=== PATIENT | male | born 1960 | race Caucasian/White ===

== ENCOUNTER → 2020-07-22 10:26 | Outpatient (BNVA) | payer OTHER, MEDICARE, SELFPAY | PROVIDERS: Referring Provider Family Medicine; Visit Provider Specialist | DX: M25.562 Pain in left knee (principal); M17.12 Unilateral primary osteoarthritis, left knee; M25.462 Effusion, left knee | CPT/HCPCS: 73560; 73565 ==

== ENCOUNTER → 2021-11-06 11:49 | Outpatient (BNVA) | payer OTHER, SELFPAY | PROVIDERS: Visit Provider Surgery | DX: Z12.11 Encounter for screening for malignant neoplasm of colon (principal) | CPT/HCPCS: 99203 ==

== ENCOUNTER 2022-01-21 07:06 | Day surgery (SDC) | payer OTHER, SELFPAY ==
[2022-01-19 13:31] VITALS: BMI 34.7
[2022-01-21 07:42] VITALS: BP 151/101; PULSE 79; RESP 18; TEMP 36.6; O2SAT 97
[2022-01-21] MEDS: sodium chloride 0.9% 1,000 ML 30 ML IV (07:46)
--- NOTE | 2022-01-21 08:05 | ANES.PREANE2 ---
Pre-Anesthetic Assessment Height/Weight: Height 1.57 m Weight 86.183 kg Temp Pulse Resp BP Pulse Ox O2 Del Method 97.8 F 79 18 151/101 97 01/21/22 07:42 01/21/22 07:42 01/21/22 07:42 01/21/22 07:42 01/21/22 07:42 01/21/22 07:42 Operation Date: 01/21/22 08:45 Proposed Procedures p Colonoscopy 76813,Z12.11(Not Applicable) - Jose Saxena DO Familial anesthetic complications: None Was Beta Jerry taken within 24 hours: N/A Was Clonidine taken within 24 hours: N/A Last intake: Intake Last Liquid Date 01/20/22 Last Liquid Time 22:00 Last Solid Date 01/19/22 Last Solid Time 20:00 Social No alcohol and No tobacco Exam alert, oriented x 3, clear to auscultation bilaterally and regular rate & rhythm Airway Mallampati: Class III Dentition: full Pulmonary Chronic Obstructive Pulmonary Disease CV/HEM Hypertension Metabolic Hyperlipidemia Anesthetic Plan ASA status: 3 Anesthesia: MAC Risk of > 500 ml blood loss (7ml/kg in children): No Medications/Allergies Home Medications Medication Instructions Recorded Confirmed Last Taken Type albuterol sulfate 90 mcg/actuation 1 inh inhalation QID PRN Shortness 07/22/20 01/19/22 01/19/22 History aerosol inhaler Of Breath atorvastatin 80 mg tablet 80 mg PO DAILY 07/22/20 01/19/22 01/19/22 History budesonide-formoterol HFA 80 2 puff inhalation BID PRN 07/22/20 01/19/22 01/19/22 History mcg-4.5 mcg/actuation aerosol Shortness Of Breath inhaler bupropion HCl 300 mg 24 hr tablet, 300 mg PO QAM 07/22/20 01/19/22 01/19/22 History extended release meloxicam 15 mg tablet 15 mg PO DAILY 07/22/20 01/19/22 01/19/22 History prazosin 1 mg capsule 1 mg PO BID 07/22/20 01/19/22 01/19/22 History sildenafil 100 mg tablet 100 mg PO DAILY PRN Sexual Activity 07/22/20 01/19/22 01/19/22 History topiramate 50 mg tablet 50 mg PO BID 07/22/20 01/19/22 01/19/22 History Allergies Allergy/AdvReac Type Severity Reaction Status Date / Time anthrax vaccine Allergy Unknown Verified 01/19/22 13:28 Current Medications Generic Name Dose Route Start Last Admin Trade Name Román PRN Reason Stop Dose Admin Sodium Chloride 1,000 mls @ 30 mls/hr 01/21/22 07:15 01/21/22 07:46 Sodium Chloride 0.9% IV 01/22/22 07:14 30 mls/hr .Q24H GIA Administration PFSH Anesthesia Medical History COPD (chronic obstructive pulmonary disease) Hyperlipidemia Insomnia Major depressive disorder PTSD (post-traumatic stress disorder) Tobacco use disorder Social History Smoking and tobacco status: former smoker Data Anesthesia Cardiac Studies: No Data to Display
--- NOTE | 2022-01-21 09:55 | P.HP_ITS ---
Providers/Chief Complaint Primary Care Provider: Linette Bello MD Chief Complaint: encounter for screening for malignant neoplasm History of Present Illness Neeraj Lopez is a 61 year old male here for colonoscopy Medications/Allergies Home Medications Medication Instructions Recorded Confirmed Last Taken Type albuterol sulfate 90 mcg/actuation 1 inh inhalation QID PRN Shortness 07/22/20 01/19/22 01/19/22 History aerosol inhaler Of Breath atorvastatin 80 mg tablet 80 mg PO DAILY 07/22/20 01/19/22 01/19/22 History budesonide-formoterol HFA 80 2 puff inhalation BID PRN 07/22/20 01/19/22 01/19/22 History mcg-4.5 mcg/actuation aerosol Shortness Of Breath inhaler bupropion HCl 300 mg 24 hr tablet, 300 mg PO QAM 07/22/20 01/19/22 01/19/22 History extended release meloxicam 15 mg tablet 15 mg PO DAILY 07/22/20 01/19/22 01/19/22 History prazosin 1 mg capsule 1 mg PO BID 07/22/20 01/19/22 01/19/22 History sildenafil 100 mg tablet 100 mg PO DAILY PRN Sexual Activity 07/22/20 01/19/22 01/19/22 History topiramate 50 mg tablet 50 mg PO BID 07/22/20 01/19/22 01/19/22 History Allergies Allergy/AdvReac Type Severity Reaction Status Date / Time anthrax vaccine Allergy Unknown Verified 01/19/22 13:28 PFSH Acute PFSH: Medical History COPD (chronic obstructive pulmonary disease) Hyperlipidemia Insomnia Major depressive disorder PTSD (post-traumatic stress disorder) Tobacco use disorder Social History Smoking and tobacco status: former smoker Vitals/I&O/Wt Last Vital Signs Temp 97.8 F 01/21/22 07:42 Pulse 79 01/21/22 07:42 Resp 18 01/21/22 07:42 BP 151/101 01/21/22 07:42 Pulse Ox 97 01/21/22 07:42 O2 Del Method 01/21/22 07:42 Weight last 48 hrs Weight 190 lb A&P Assessment and plan (1) Colon cancer screening: Plan Colonoscopy Attestations Medical Necessity Statement*: Home Coding Level of Care Code Acute [employer] Inspector for Chg Fwd Diagnoses Colon cancer screening Z12.11
--- NOTE | 2022-01-21 10:26 | ANE.PACU2 ---
Inpatient post-anesthesia follow up: Airway intact: Yes Vital signs: Temperature 97.8 F Pulse Rate 79 Respiratory Rate 18 Blood Pressure 151/101 Pulse Oximetry 97 Oxygen Delivery Me thod Room Air Oxygen Flow Rate Fraction of Inspir ed Oxygen Hydration adequate: Yes Nausea and vomiting: No Pain level: 1 Mental status: Baseline
[2022-01-21 10:28] VITALS: BP 179/82; PULSE 71; RESP 18; TEMP 36.5; O2SAT 93
[2022-01-21 10:40] VITALS: BP 195/122; PULSE 67; RESP 18; TEMP 36.4; O2SAT 97
--- NOTE | 2022-01-21 10:52 | SUR.PHASEII ---
patients bp continues to run high, even after changing cuffs, cords and changing the position of the cuff. patient reports he doesnt take his blood pressure medication like he should. anesthesia notified and are administering labetelol iv at this time. see vs. will cont to monitor
[2022-01-21 10:57] VITALS: BP 141/95; PULSE 68; RESP 18; TEMP 36.7; O2SAT 98
--- NOTE | 2022-01-21 11:04 | SUR.PHASEII ---
ALSO INSTRUCTED PATIENT TO SEE HIS PHYSICIAN IN REGARDS TO HIS BLOOD PRESSURE
== END 2022-01-21 11:09 | disposition home or self-care (01) ==
PROVIDERS: PCP Family Medicine; Visit Provider Surgery
PROC: 0DJD8ZZ Inspection of Lower Intestinal Tract, Via Natural or Artificial Opening Endoscopic (ICD-10-PCS; CPT 45378; principal; 2022-01-21 08:45)
DX: Z12.11 Encounter for screening for malignant neoplasm of colon (principal); D12.4 Benign neoplasm of descending colon; J44.9 Chronic obstructive pulmonary disease, unspecified; E78.5 Hyperlipidemia, unspecified; Z87.891 Personal history of nicotine dependence; I10 Essential (primary) hypertension
CPT/HCPCS: 45385; 88305; J2704; J3490; J7030

== ENCOUNTER → 2022-02-17 09:24 | Outpatient (BNVA) | payer OTHER, SELFPAY | PROVIDERS: PCP Family Medicine; Visit Provider Surgery | DX: D12.6 Benign neoplasm of colon, unspecified (principal) | CPT/HCPCS: 99212 ==